=== PATIENT | female | born 1995 | race Caucasian/White ===

== ENCOUNTER 2017-09-17 12:34 | Emergency (ER) | payer OTHER ==
[2017-09-17 13:23] VITALS: BP 120/85
--- NOTE | 2017-09-17 14:33 | UC ---
Throat Pain/Nasal Thong HPI - HPI Summary HPI Summary: Patient presents with a past medical history of allergies. She states juan miguel lately the symptoms have become much worse. She reports nasal congestion. and plugging, with increased PND that is causing her to cough more. She states she has worse nasal congestion in the morning when she first gets up, and it is always clear. She denies any chest pain, or shortness of breath. - History of Current Complaint Chief Complaint: UCRespiratory Stated Complaint: SORE THROAT, SINUS CONGESTION, AND COUGH Time Seen by Provider: 09/17/17 14:16 Hx Obtained From: Patient Hx Last Menstrual Period: 08/23/17 Onset/Duration: Gradual Onset, Lasting Days Severity: Moderate Pain Intensity: 6 Cough: Sputum Appears - clear Associated Signs & Symptoms: Positive: Sinus Discomfort, Nasal Discharge - Epiglottits Risk Factors Epiglottis Risk Factors: Negative - Allergies/Home Medications Allergies/Adverse Reactions: Allergies Allergy/AdvReac Type Severity Reaction Status Date / Time Adhesive Tape Allergy REDNESS AT Verified 08/25/16 13:37 SITE latex Allergy See Comment Verified 09/17/17 13:23 Home Medications: Home Medications Acetaminophen/Dextromethorphan [Cold & Cough Daytime 1000-30 mg/30Ml] 1 liq PO DAILY PRN 09/17/17 [History Confirmed 09/17/17] Norgestimate-Ethinyl Estradiol [Twiggs-Linyah 28 Tablet] 1 tab PO DAILY 09/17/17 [ History Confirmed 09/17/17] PMH/Surg Hx/FS Hx/Imm Hx Previously Healthy: Yes - Surgical History Surgical History: None - Family History Known Family History: Positive: None - Social History Occupation: Student Lives: Alone Alcohol Use: Rare Substance Use Type: None Smoking Status (MU): Never Smoked Tobacco Have You Smoked in the Last Year: No Review of Systems Constitutional: Negative Skin: Negative Eyes: Negative ENT: Sore Throat, Nasal Discharge, Sinus Congestion, Sinus Pain/Tenderness Respiratory: Negative Cardiovascular: Negative Gastrointestinal: Negative Genitourinary: Negative Motor: Negative Neurovascular: Negative Musculoskeletal: Negative Neurological: Negative Psychological: Negative Is Patient Immunocompromised?: No All Other Systems Reviewed And Are Negative: Yes Physical Exam Triage Information Reviewed: Yes Appearance: Well-Appearing Vital Signs: Initial Vital Signs Temp 99.2 F 09/17/17 13:19 Pulse 102 09/17/17 13:19 Resp 16 04/15/18 13:19 BP 120/85 09/17/17 13:19 Pulse Ox 99 09/17/17 13:19 Vital Signs Reviewed: Yes Eye Exam: Normal ENT Exam: Other - turbinates blue 2+. ENT: Positive: Pharyngeal erythema, Uvula midline Neck exam: Normal Respiratory Exam: Normal Cardiovascular Exam: Normal Throat Pain/Nasal Course/Dx - Course Course Of Treatment: Patient presents with allergic rhinitis, and will be treated with claritin 10 mg in the morning, and xyzal 5 mg at h.s., and flonase 2 sprays each nostril daily. Per patient request I have referred her to an technical system analyst. - Differential Dx/Diagnosis Differential Diagnosis/HQI/PQRI: Other - allergic rhinitis Provider Diagnoses: allergic rhinitis Discharge - Sign-Out/Discharge Documenting (check all that apply): Discharge - Discharge Plan Condition: Stable Disposition: HOME Prescriptions: Fluticasone NASAL SPRAY 50MCG* [Flonase NASAL SPRAY 50MCG*] 2 spray BOTH NARES DAILY #1 btl Levocetirizine Dihydrochloride [Xyzal] 5 mg PO DAILY #14 tablet Loratadine [Claritin 10 MG CAP] 10 mg PO DAILY #14 cap Patient Education Materials: Allergic Rhinitis (DC) Referrals: [facility] - Nabil CHAVEZ [Primary Care Provider] - Steven Corley MD [Medical Doctor] - - Billing Disposition and Condition Condition: STABLE Disposition: HOME
== END 2017-09-17 14:40 | disposition home or self-care (01) ==
LOC: UCEAST 12:34
DX: J30.9 Allergic rhinitis, unspecified (principal); Z91.040 Latex allergy status; Z91.048 Other nonmedicinal substance allergy status
CPT/HCPCS: 99212; G0463